=== PATIENT | male | born 1995 | race Caucasian/White ===

== ENCOUNTER 2022-02-07 13:14 | Emergency (ER) | payer BC, OTHER, MEDICARE, MEDICAID ==
[~2022-02-07] VITALS: Ht 175.3 cm; Wt 63.6 kg
[2022-02-07 13:15] VITALS: TEMP 98.3
[2022-02-07 17:28] VITALS: BP 128/89; PULSE 88
== END 2022-02-07 17:28 | disposition home or self-care (01) ==
LOC: COL.ER 13:14
DX: T18.128A Food in esophagus causing other injury, initial encounter (principal); Z28.310 Unvaccinated for COVID-19; X58.XXXA Exposure to other specified factors, initial encounter
CPT/HCPCS: J1610; J2405; J2704; J3010

== ENCOUNTER 2022-03-09 06:20 | Day surgery (SDC) | payer BC, OTHER, MEDICARE, MEDICAID ==
[~2022-03-09] VITALS: Ht 170.2 cm; Wt 66.6 kg
[2022-03-09] MEDS ORDERED: DEXEDRINE SPANS15 M1 PO (06:43)
[2022-03-09] MEDS ORDERED: ADDERALL XR PO (06:45)
[2022-03-09] MEDS ORDERED: ZOLOFT 25MG25 MG PO (06:46)
[2022-03-09] MEDS ORDERED: ZYRTEC5 MG PO (06:47)
[2022-03-09] MEDS ORDERED: CLARITIN REDITAB5 MG (06:48)
[2022-03-09] MEDS ORDERED: MELADOX NATURAL3 MG PO (06:49)
[2022-03-09] MEDS ORDERED: PRILOSEC 20MG20 MG PO (06:56)
[2022-03-09 07:01] VITALS: BP 117/71; PULSE 72; TEMP 97.6
[2022-03-09 07:45] VITALS: BP 118/74; PULSE 89
[2022-03-09 08:00] VITALS: BP 122/78; PULSE 88; TEMP 98
[2022-03-09 08:15] VITALS: BP 121/72; PULSE 94
--- NOTE | 2022-03-09 08:30 | NUR ---
0745 PT RETURNED TO [facility] VIA CART. TRANSFERRED TO CHAIR WITH RN ASSIST. ALERT AND ORIENTED. MONITORS ATTACHED, INTERVALS AND ALARMS SET. VSS. PT DENIES PAIN OR NAUSEA. FOOD AND DRINK PROVIDED. CALL LIGHT IN REACH. 0800 VSS. PT DENIES DISCOMFORT. TOLERATING FOOD AND DRINK WELL. DR IN TO SPEAK WITH PT. 0815 VSS. PT DENIES DISCOMFORT. REVIEWED DISCHARGE INSTRUCTIONS AND EDUCATION MATERIAL, ANSWERED ALL QUESTIONS. IV REMOVED WITHOUT COMPLICATIONS. PT ALLOWED TO DRESS. 0830 TRANSFERRED PT VIA WHEELCHAIR TO PERSONAL VEHICLE TO BE DRIVEN HOME BY PARENTS.
== END 2022-03-09 08:30 | disposition home or self-care (01) ==
LOC: SDCO 06:20
DX: R13.10 Dysphagia, unspecified (principal)
CPT/HCPCS: J2704; J7030